=== PATIENT | female | born 1985 | race Caucasian/White ===

== ENCOUNTER 2016-03-08 15:48 | Emergency (ER) | payer OTHER ==
--- NOTE | 2016-03-08 17:03 | UC ---
Respiratory Complaint HPI - HPI Summary HPI Summary: patient with a CC of ear pain, cough x 4 weeks (improving). She states she was given amoxicillin after diagnosed with strep throat 4 weeks ago. she denies congestion, eye pain or MICHELE. - History of Current Complaint Chief Complaint: UCGeneralIllness Stated Complaint: ST,EARS Hx Obtained From: Patient Hx Last Menstrual Period: 02/02/16 ?: No Onset/Duration: Gradual Onset Timing: Constant Severity Initially: Moderate Pain Intensity: 5 Pain Scale Used: 0-10 Numeric Character: Cough: Nonproductive Associated Signs And Symptoms: Positive: URI, Nasal Congestion - Risk Factors Pulmonary Embolism Risk Factors: Negative Cardiac Risk Factors: Negative Pseudomonas Risk Factors: Negative Tuberculosis Risk Factors: Negative - Allergies/Home Medications Allergies/Adverse Reactions: Allergies Allergy/AdvReac Type Severity Reaction Status Date / Time No Known Allergies Allergy Verified 12/01/12 15:53 Home Medications: Home Medications Acetaminophen [Tylenol] 650 mg PO Q4HR PRN 03/08/16 [History Confirmed 03/08/16] PMH/Surg Hx/FS Hx/Imm Hx Previously Healthy: Yes - Surgical History Surgical History: Yes Surgery Procedure, Year, and Place: . niels - Family History Known Family History: Positive: None - Social History Occupation: Employed Full-time Lives: With Family Alcohol Use: None Substance Use Type: None Smoking Status (MU): Never Smoked Tobacco Have You Smoked in the Last Year: No Review of Systems Constitutional: Fatigue Eyes: Negative ENT: Sore Throat, Ear Ache, Nasal Discharge Respiratory: Cough Cardiovascular: Negative Motor: Negative Neurovascular: Negative Musculoskeletal: Negative Neurological: Negative All Other Systems Reviewed And Are Negative: Yes Physical Exam Triage Information Reviewed: Yes Appearance: Well-Appearing, No Pain Distress, Well-Nourished Vital Signs: Initial Vital Signs Temp 98.4 F 03/08/16 16:04 Pulse 71 03/08/16 16:04 Pulse Ox 99 03/08/16 16:04 Vital Signs Reviewed: Yes Eye Exam: Normal Eyes: Positive: Conjunctiva Clear ENT: Positive: Normal ENT inspection, Pharynx normal, Nasal congestion, TMs normal Dental Exam: Normal Neck exam: Normal Neck: Positive: Supple, Nontender Respiratory Exam: Normal Respiratory: Positive: Chest non-tender, Lungs clear, Normal breath sounds Cardiovascular Exam: Normal Cardiovascular: Positive: RRR Musculoskeletal Exam: Normal Musculoskeletal: Positive: Strength Intact, ROM Intact Neurological Exam: Normal Neurological: Positive: Alert Psychological Exam: Normal Psychological: Positive: Normal Response To Family, Age Appropriate Behavior Skin Exam: Normal Diagnostic Evaluation - Laboratory O2 Sat by Pulse Oximetry: 99 Respiratory Course/Dx - Course Course Of Treatment: POCT strep negative. Patient given tessalon pearles for cough. allergy medication. - Differential Dx/Diagnosis Differential Diagnosis/HQI/PQRI: Asthma, Sinusitis Provider Diagnoses: ear pain - Physician Notification/Consults Instructed by Provider To: Have Pt Call For Appt. Discharge - Discharge Plan Condition: Stable Disposition: HOME Prescriptions: Benzonatate CAP* [Tessalon CAP*] 100 mg PO TID #21 cap MDD 3 Fexofenadine-Pseudoephedrine [Raven-D 24 Hour Allergy] 1 tab PO ONCE #30 tab Patient Education Materials: Benzonatate (By mouth), Earache (ED) Referrals: Becky Bernal MD [Primary Care Provider] - Additional Instructions: Drink plenty of fluids. Come back to UC if symptoms fail to improve or worsen. Tylenol as needed for discomfort.
== END 2016-03-08 17:03 | disposition home or self-care (01) ==
LOC: UCCORT 15:48
DX: H92.09 Otalgia, unspecified ear (principal)
CPT/HCPCS: 87651; 99202; G0463